=== PATIENT | male | born 1990 | race Caucasian/White ===

== ENCOUNTER 2018-06-26 05:47 | Emergency (ER) | payer OTHER, SELFPAY ==
[2018-06-26 05:50] VITALS: BP 131/78; PULSE 74; RESP 18; TEMP 36.9; O2SAT 100; BMI 23.1
--- NOTE | 2018-06-26 06:01 | ED.MALEGU ---
HPI - Male Genitourinary General Chief complaint: Urogenital-Male Stated complaint: Painful urination with a little blood Time Seen by Provider: 06/26/18 06:01 Source: patient Mode of arrival: ambulatory Limitations: no limitations History of Present Illness HPI Narrative: The patient awoke at 2:00 a.m. with left flank pain, and pain to the scrotum. He had pain with urination and a small amount of blood after urinating. He has ongoing left flank pain. He has no nausea, vomiting diarrhea. He denies fever or chills. He has no prior history of dysuria or hematuria. He has no history of kidney stones. He has had no trauma, he denies any recent illness. Related Data Allergies Allergy/AdvReac Type Severity Reaction Status Date / Time Penicillins Allergy Rash Verified 06/26/18 05:53 Review of Systems Review of Systems All systems reviewed & are unremarkable except as noted in HPI and below Constitutional Denies chills, Denies fever(s), Denies lethargy and Denies weakness Cardiovascular Denies chest pain, Denies irregular heart rhythm, Denies lightheadedness, Denies palpitations, Denies dyspnea, Denies dyspnea on exertion and Denies orthopnea Respiratory Denies cough, Denies dyspnea, Denies dyspnea on exertion and Denies wheezing Gastrointestinal Gastrointestinal: Reports abdominal pain, Denies change in bowel habits, Denies diarrhea, Denies nausea and Denies vomiting Genitourinary Reports hematuria, Reports dysuria, Reports flank pain, Denies urinary incontinence and Denies urinary urgency Musculoskeletal Reports back pain and Denies muscle weakness Integumentary/Breasts Denies rash Neurologic Denies weakness Endocrine Denies palpitations Allergic/Immunologic Denies wheezing [facility] Social History Smoking Status: Never smoker Exam Initial Vital Signs Initial Vital Signs: Vital Signs Temperature 98.5 F 06/26/18 05:50 Pulse Rate 74 06/26/18 05:50 Respiratory Rate 18 06/26/18 05:50 Blood Pressure 131/78 H 06/26/18 05:50 Pulse Oximetry 100 06/26/18 05:50 Eyes Conjunctivae: conjunctivae normal Resp Effort & Inspection: normal respiratory effort and able to speak in complete sentences Auscultation: clear to auscultation bilaterally, no rales, no rhonchi and no wheezes Cardio Rate: regular rate Rhythm: regular rhythm Heart Sounds: no click, no gallops, no murmurs and no rubs Pulses: normal peripheral pulses GI Inspection: non-distended Palpation: soft, no hepatosplenomegaly, No guarding, No pulsatile mass and No tender Auscultation: normal bowel sounds External: normal external exam, no edema, no erythema, no scrotal swelling and nontender Penis: normal penis Meatus: meatus normal Back/Spine/Pelvis Back: CVA tenderness left (mild) Course Hospital Course: The patient is pain free after receiving Toradol. He had hematuria and pain earlier, symptoms are now resolved. By labs and a physical exam there is no evidence of infection. He has likely passed a kidney stone. I explained to him that the stone could still be in place and simply not showing blood at this time if it is not moving. He should return if worse. Orders Ordered: ED Orders 06/26/18 06:25 Basic Metabolic Panel Stat Complete Blood Count AUTO DIFF Stat Sodium Chloride (Normal Saline 0.9%) 1,000 mls @ 150 mls/hr IV CONT STACEY Last Admin: 06/26/18 06:20 Dose: 150 mls/hr Discontinued Medications Ketorolac Tromethamine (Toradol) 30 mg IV NOW ONE Stop: 06/26/18 06:09 Last Admin: 06/26/18 06:19 Dose: 30 mg Vital Signs - 8 hr 06/26/18 05:50 Temperature 98.5 F Pulse Rate 74 Respiratory Rate 18 Blood Pressure 131/78 H Pulse Oximetry 100 MDM - Male Genitourinary Lab Data Result diagrams: 06/26/18 06:25 06/26/18 06:25 Lab Results 06/26/18 06/26/18 Range/Units 06:25 06:25 WBC 4.1 L (4.5-11.0) X10^3/uL RBC 5.19 (4.5-5.9) X10^6/uL Hgb 16.1 (13.5-17.5) g/dL Hct 46.6 (41-53) % MCV 89.7 (80-100) fL MCH 30.9 (26-34) PG MCHC 34.5 (30-36) % RDW 13.2 (11.6-14.8) % Plt Count 149 L (150-400) X10^3/uL Neut % (Auto) 58.0 (50-75) % Lymph % (Auto) 29.7 (25-40) % Young % (Auto) 8.7 (3-14) % Eos % (Auto) 2.2 (2-4) % Baso % (Auto) 1.4 (0-2) % Neut # (Auto) 2400 L (7351-5371) /uL Sodium 142 (137-145) mmol/L Potassium 4.1 (3.4-5.1) mmol/L Chloride 100 (98-107) mmol/L Carbon Dioxide 32 (22-32) mmol/L BUN 14 (9-20) mg/dL Creatinine 1.00 (0.66-1.25) mg/dL Estimated GFR > 60.0 (>60) mL/min BUN/Creatinine Ratio 14.0 (6-22) Glucose 97 (70-100) mg/dL Calcium 9.6 (8.4-10.2) mg/dL POC UA is normal. There is no evidence of hematuria or pyuria. Discharge Plan Departure Patient Disposition: Home, Self-Care Clinical Impression: Hematuria Instructions: DI for Hematuria Activity Restrictions/Additional Instructions: Based upon the history taking and evaluation, you have likely passed a kidney stone. There is still a possibility the stone is within you, so if he have recurrence of pain and bloody return here. Drink plenty of water. Advil every 6 hr as needed for pain. Stand Alone Forms: Work/School Restrictions
[2018-06-26] MEDS: KETOROLAC 60 MG/2 ML VIAL 30 MG IV (06:19)
[2018-06-26] MEDS: SODIUM CHLORIDE 0.9% 1,000 ML 150 ML IV (06:20)
[2018-06-26 06:28] LABS: Add Manual Diff / Slide Review NO; Basophils Percent Auto 1.4 % (0-2); Eosinophils Percent Auto 2.2 % (2-4); Hematocrit 46.6 % (41-53); Hemoglobin 16.1 g/dL (13.5-17.5); Lymphocytes Percent Auto 29.7 % (25-40); Mean Corpuscular HGB Conc 34.5 % (30-36); Mean Corpuscular Hemoglobin 30.9 PG (26-34); Mean Corpuscular Volume 89.7 fL (80-100); Monocytes Percent Auto 8.7 % (3-14); Neutrophils Absolute Auto 2400 /uL (3000-5900); Platelet Count 149 X10^3/uL (150-400); Red Blood Cell Count 5.19 X10^6/uL (4.5-5.9); Red Cell Distribution Width 13.2 % (11.6-14.8); White Blood Cell Count 4.1 X10^3/uL (4.5-11.0)
[2018-06-26 06:42] LABS: Blood Urea Nitrogen 14 mg/dL (9-20); Calcium 9.6 mg/dL (8.4-10.2); Carbon Dioxide 32 mmol/L (22-32); Chloride 100 mmol/L (98-107); Estimated Glomerular Filt Rate > 60.0 mL/min (>60); Glucose 97 mg/dL (70-100); HEMOLYSIS < 15 (0-50); Potassium 4.1 mmol/L (3.4-5.1); Sodium 142 mmol/L (137-145)
--- NOTE | 2018-07-01 19:16 | PC.NURSE ---
Pt calls question 1 &2 . it was great
== END 2018-06-26 08:03 | disposition home or self-care (01) ==
PROVIDERS: Emergency Provider Emergency Medicine
DX: R31.9 Hematuria, unspecified (principal)
CPT/HCPCS: 36591; 80048; 81003; 85025; 96361; 96374; 99283; 99284; J1885